=== PATIENT | female | born 1980 | race Native Hawaiian/Other Pacific Islander ===

== ENCOUNTER 2016-06-19 11:46 | Emergency (ER) | payer OTHER ==
[~2016-06-19] VITALS: Ht 162.6 cm; Wt 83.0 kg
[2016-06-19 12:03] VITALS: TEMP 97.9
[2016-06-19] MEDS ORDERED: PREDNISONE10 M1 OR (12:04)
[2016-06-19] MEDS ORDERED: TESSALON PER100 MG OR (12:05)
[2016-06-19] MEDS ORDERED: LEVAQUIN500 MG OR (12:05)
[2016-06-19 12:38] LABS: PLATELET COUNT 268 K/uL (152-353)
[2016-06-19 12:47] LABS: POTASSIUM 4.2 mmol/L (3.6-5.2); SODIUM 136 mmol/L (136-145)
[2016-06-19 14:10] VITALS: BP 136/77
== END 2016-06-19 14:10 | disposition home or self-care (01) ==
LOC: ED 11:46
PROVIDERS: Specialist
DX: J40 Bronchitis, not specified as acute or chronic (principal)
CPT/HCPCS: 36600; 80048; 82805; 85027; 99283

== ENCOUNTER 2016-09-09 09:16 | Outpatient (CLI) | payer OTHER ==
[~2016-09-09 09:16] MED LIST: LEVAQUIN500 MG OR; PREDNISONE10 M1 OR; TESSALON PER100 MG OR
== END 2016-09-09 19:05 | disposition home or self-care (01) ==
LOC: RAD 09:16
DX: M54.2 Cervicalgia (principal)

== ENCOUNTER 2018-04-19 23:31 | Emergency (ER) | payer OTHER ==
[~2018-04-19] VITALS: Ht 162.6 cm; Wt 90.7 kg
[2018-04-19] MEDS ORDERED: AMBIEN5 MG PO (23:49)
[2018-04-19] MEDS ORDERED: ALPR0.2566 PO (23:49)
[2018-04-20 01:37] VITALS: BP 112/78; TEMP 98.8
== END 2018-04-20 01:37 | disposition home or self-care (01) ==
LOC: ED 23:31
DX: R05 Cough (principal); R52 Pain, unspecified; R50.9 Fever, unspecified; R51 Headache
CPT/HCPCS: 87502; 87651; 99283

== ENCOUNTER 2019-12-29 18:31 | Emergency (ER) | payer OTHER ==
[~2019-12-29] VITALS: Ht 162.6 cm; Wt 100.7 kg
[~2019-12-29 18:31] MED LIST changes: +ALPR0.2566 PO; +AMBIEN5 MG PO
[2019-12-29 19:46] LABS: PLATELET COUNT 260 K/uL (152-353)
[2019-12-29 19:55] LABS: PARTIAL THROMBOPLASTIN TIME 29.2 SECONDS (24.5-33.6)
[2019-12-29 20:05] VITALS: BP 134/88; TEMP 98.9
== END 2019-12-29 20:05 | disposition home or self-care (01) ==
LOC: ED 18:31
PROVIDERS: Hospitalist
DX: M54.5 Low back pain (principal); G89.29 Other chronic pain; M51.37 Other intervertebral disc degeneration, lumbosacral region
CPT/HCPCS: 36415; 80048; 81000; 85027; 85610; 85730; 96365; 96375; 99284; J1885; J2405

== ENCOUNTER 2020-04-01 18:42 | Emergency (ER) | payer OTHER ==
[~2020-04-01] VITALS: Ht 162.6 cm; Wt 104.3 kg
[2020-04-01 19:46] LABS: PLATELET COUNT 255 K/uL (152-353)
[2020-04-01 19:58] LABS: SODIUM 140 mmol/L (136-145)
[2020-04-01 20:12] LABS: PARTIAL THROMBOPLASTIN TIME 27.7 SECONDS (24.5-33.6)
[2020-04-01 21:13] VITALS: BP 134/57; TEMP 98.1
== END 2020-04-01 20:49 | disposition home or self-care (01) ==
LOC: ED 18:42
PROVIDERS: Hospitalist
DX: U07.1 COVID-19 (principal); J06.9 Acute upper respiratory infection, unspecified; F17.210 Nicotine dependence, cigarettes, uncomplicated
CPT/HCPCS: 36415; 80053; 82550; 83880; 84484; 85027; 85379; 85610; 85730; 87635; 87651; 93005; 99284; J1100; U0003

== ENCOUNTER 2021-06-05 14:18 | Emergency (ER) | payer OTHER ==
[~2021-06-05] VITALS: Ht 162.6 cm; Wt 90.7 kg
[2021-06-05 14:27] VITALS: BP 133/82; TEMP 97.7
[2021-06-05 15:12] LABS: PLATELET COUNT 247 K/uL (152-353)
[2021-06-05 15:17] LABS: POTASSIUM 4.2 mmol/L (3.6-5.2)
== END 2021-06-05 17:10 | disposition home or self-care (01) ==
LOC: ED 14:18
PROVIDERS: Family Medicine
DX: N30.81 Other cystitis with hematuria (principal); N83.202 Unspecified ovarian cyst, left side
CPT/HCPCS: 80053; 81000; 82150; 83690; 85027; 99283

== ENCOUNTER 2021-07-17 19:24 | Emergency (ER) | payer OTHER ==
[~2021-07-17] VITALS: Ht 162.6 cm; Wt 88.5 kg
[2021-07-17 21:45] VITALS: BP 130/82; TEMP 98.1
== END 2021-07-17 21:45 | disposition home or self-care (01) ==
LOC: ED 19:24
PROC: 2W3QX1Z Immobilization of Right Lower Leg using Splint (ICD-10-PCS; principal; 2021-07-17)
DX: S82.841A Displaced bimalleolar fracture of right lower leg, initial encounter for closed fracture (principal); S82.844A Nondisplaced bimalleolar fracture of right lower leg, initial encounter for closed fracture; W10.8XXA Fall (on) (from) other stairs and steps, initial encounter; Y92.89 Other specified places as the place of occurrence of the external cause
CPT/HCPCS: 96372; 99283; J0696; J2175; J2405

== ENCOUNTER 2021-11-29 14:50 | Emergency (ER) | payer OTHER ==
[~2021-11-29] VITALS: Ht 162.6 cm; Wt 95.3 kg
[2021-11-29 14:50] VITALS: TEMP 98
[2021-11-29 15:44] LABS: PLATELET COUNT 268 K/uL (152-353)
[2021-11-29 15:58] LABS: POTASSIUM 3.5 mmol/L (3.6-5.2)
[2021-11-29 17:30] VITALS: BP 121/72
== END 2021-11-29 17:45 | disposition home or self-care (01) ==
LOC: ED 14:50
PROVIDERS: Emergency Medicine Emergency Medical Services
DX: M79.18 Myalgia, other site (principal)
CPT/HCPCS: 36415; 80053; 83735; 84484; 85027; 93005; 96360; 96374; 99284; J1885

== ENCOUNTER 2021-12-17 11:04 | Emergency (ER) | payer BC | END 2021-12-17 12:25 | disposition home or self-care (01) | LOC: ED 11:04 | DX: Z53.21 Procedure and treatment not carried out due to patient leaving prior to being seen by health care provider (principal) ==

== ENCOUNTER 2022-11-21 14:03 | Outpatient (CLI) | payer OTHER ==
[2022-11-21 14:48] LABS: POTASSIUM 4.3 mmol/L (3.6-5.2)
== END 2022-11-21 19:09 | disposition home or self-care (01) ==
LOC: LABW 14:03
PROVIDERS: ATTEND Internal Medicine Cardiovascular Disease
DX: R00.2 Palpitations (principal); I47.1 Supraventricular tachycardia
CPT/HCPCS: 36415; 80048; 80061